=== PATIENT | female | born 1990 | race Caucasian/White ===

== ENCOUNTER 2018-12-20 17:26 | Emergency (ER) | payer OTHER ==
[~2018-12-20] VITALS: Ht 160 cm; Wt 64.0 kg
[~2018-12-20 17:26] MED LIST: SERT25TA PO
[2018-12-20 17:35] VITALS: BP 128/74
--- NOTE | 2018-12-20 17:35 | NUR ---
BIB SELF FOR POSSIBLE INGESTION OF FABRIC SOFTNER. PT STATES FABRIC SOFTNER BOTTLE WAS SITTING ON TOP OF WATER DISPENSER AND SHE THINKS IT "SOMEHOW GOT IN THE WATER". PT STATES THE WATER TASTED FUNNY. PT HAS NO COMPLAINTS OTHER THAN ANXIETY. PT AWAKE AND ALERT. NO N/V/D OR PAIN.
--- NOTE | 2018-12-20 17:55 | NUR ---
DR MCQUEEN EVALUATING PT.
--- NOTE | 2018-12-20 18:00 | NUR ---
Patient discharged with v/s stable. Written and verbal after care instructions given and explained. Patient verbalized understanding. Ambulatory with steady gait. All questions addressed prior to discharge. Advised to follow up with PMD.
[2018-12-20 18:04] VITALS: BP 128/74
== END 2018-12-20 18:00 | disposition home or self-care (01) ==
LOC: MED 17:26
DX: T65.891A Toxic effect of other specified substances, accidental (unintentional), initial encounter (principal); J45.909 Unspecified asthma, uncomplicated; Z79.899 Other long term (current) drug therapy; Y92.89 Other specified places as the place of occurrence of the external cause
CPT/HCPCS: 99281